=== PATIENT | male | born 1975 | race Caucasian/White ===

== ENCOUNTER 2020-06-02 12:04 | Inpatient (IN) | payer OTHER ==
[~2020-06-02] VITALS: Ht 180.3 cm; Wt 204.1 kg
[~2020-06-02 12:04] MED LIST: ADIPEX-P37.5 MG PO; HYDROCHLOROTH12.5 M1 PO; LISINOPRIL20 MG PO
[2020-06-02 12:23] VITALS: BP 143/126
[2020-06-02] MEDS ORDERED: XANAX 0.5 MG0.5 MG PO (12:27)
[2020-06-02 12:53] LABS: ABSOLUTE LYMPHOCYTES 1.1 thou/uL (0.8-5.3); ABSOLUTE MONOCYTES 0.3 thou/uL (0.0-1.2); ABSOLUTE NEUTROPHILS 4.7 thou/uL (1.6-8.1); BASOPHILS 0.3 %; HEMATOCRIT 46.6 % (42.0-52.0); HEMOGLOBIN 15.7 gm/dL (14.0-18.0); LYMPHOCYTES 17.5 %; MCH 29.2 pg (26.0-34.0); MCHC 33.7 g/dL (28.0-37.0); MCV 86.5 fL (80.0-100.0); MONOCYTES 5.6 %; MPV 8.6 fl. (7.2-11.1); NUCLEATED RBCS 0 /100WBC; PLATELET COUNT* 145 thou/uL (150-400); POLYS 76.6 %; RBC 5.39 mil/uL (4.50-6.00); RDW-CV 13.4 % (10.5-14.5); WBC 6.2 thou/uL (4.0-11.0)
[2020-06-02 12:57] LABS: URINE BLOOD 1+ (Negative); URINE CLARITY CLEAR; URINE COLOR YELLOW; URINE GLUCOSE-RANDOM NEGATIVE (Negative); URINE KETONES TRACE (Negative); URINE LEUKOCYTES-REFLEX NEGATIVE (Negative); URINE NITRITE-REFLEX NEGATIVE (Negative); URINE PROTEIN 3+ (Negative); URINE SPECIFIC GRAVITY 1.025 (1.005-1.030)
[2020-06-02 13:01] LABS: CALCIUM 8.2 mg/dL (8.5-10.1); CREATININE 1.9 mg/dL (0.6-1.3); POTASSIUM 4.1 mmol/L (3.5-5.1)
[2020-06-02 13:02] LABS: ICTOTEST (BILI CONFIRMATORY) Negative (Negative); URINE BILIRUBIN 1+ (Negative)
[2020-06-02 13:05] LABS: APTT 30.9 Seconds (25.0-31.3); INR 1.1; PROTIME 11.3 Seconds (9.20-11.50)
[2020-06-02 13:07] LABS: AMP/METHAMP Negative (Negative); BARBITURATES Negative (Negative); BENZODIAZEPINES POSITIVE (Negative); COCAINE Negative (Negative); METHADONE Negative (Negative); OPIATES Negative (Negative); PCP Negative (Negative); THC Negative (Negative)
[2020-06-02 13:11] LABS: SQUAMOUS NONE SEEN /LPF (0-3); URINE WBC-REFLEX 0-5 Rare /HPF (0-5)
[2020-06-02 13:12] LABS: ALBUMIN 2.7 g/dL (3.4-5.0); TOTAL BILIRUBIN 0.4 mg/dL (<0.1-1.0); TOTAL PROTEIN 7.5 g/dL (6.4-8.2)
[2020-06-02 13:12] LABS: BACTERIA-REFLEX >30 Many /HPF (None Seen); COARSE GRANULAR CASTS 4-10 Moderate /LPF (None Seen); FINE GRANULAR CASTS 0-3 Few /LPF (None Seen); HYALINE CASTS 0-3 Few /LPF (None Seen); MUCUS >6 Heavy strn/LPF (None Seen); URINE RBC 0-2 Rare /HPF (0-2)
[2020-06-02 13:13] LABS: CRYSTALS None Seen /LPF (None Seen); WBC CASTS 0-3 /LPF
[2020-06-02 15:14] LABS: BE -0.3 mmol/L (-2 to +3); PCO2 47.7 mmHg (35.0-45.0); PO2 91.5 mmHg (75.0-100.0); pH 7.353 (7.340-7.450)
[2020-06-02 16:43] VITALS: BP 111/92
[2020-06-02 17:27] VITALS: BP 102/51
[2020-06-02 19:16] LABS: CALCIUM 8.3 mg/dL (8.5-10.1); CREATININE 1.5 mg/dL (0.6-1.3); POTASSIUM 4.7 mmol/L (3.5-5.1)
[2020-06-02 19:33] LABS: INFLUENZA A ANTIGEN Negative (Negative); INFLUENZA B ANTIGEN Negative (Negative)
[2020-06-03 01:15] VITALS: BP 104/47
[2020-06-03 04:32] LABS: HEMATOCRIT 45.5 % (42.0-52.0); HEMOGLOBIN 15.2 gm/dL (14.0-18.0); MCH 29.1 pg (26.0-34.0); MCHC 33.4 g/dL (28.0-37.0); MCV 87.1 fL (80.0-100.0); MPV 8.6 fl. (7.2-11.1); RBC 5.22 mil/uL (4.50-6.00); RDW-CV 13.7 % (10.5-14.5); WBC 5.6 thou/uL (4.0-11.0)
[2020-06-03 04:38] LABS: CALCIUM 8.5 mg/dL (8.5-10.1); CREATININE 1.6 mg/dL (0.6-1.3); MAGNESIUM 2.1 mg/dL (1.8-2.4); POTASSIUM 4.3 mmol/L (3.5-5.1)
--- NOTE | 2020-06-03 12:00 | NUR ---
SPOKE WITH PT.ON PHONE DUE TO COVID PENDING AND ON ENHANCED PRECAUTIONS. HE SAID HE IS INDEPENDENT. HIS SON LIVES WITH HIM. WORKS. NO USE OF DME. NO HX OF OR SNF. DOES NOT HAVE INSURANCE. MED ASSIST TO SCREEN. DISCUSSED MED ASSIST WITH HIM.
--- NOTE | 2020-06-03 14:29 | NUR ---
Nutrition: Pt admitted to COVID unit with COVID. Consult received for OBE. Wt: 450#. DDiet: regular. Alb 2.7, prealb 8.9 - severely low. Not a lot of info yet. No meal intake recorded. Will follow pt's po intake, wt, labs. Consider mild nutrition risk at this time. F/u 06/08/20.
--- NOTE | 2020-06-03 15:07 | EKG ---
[place] [address] ELECTROCARDIOGRAM REPORT Name: DAVID HALEY Room: [address] ADM IN .R.#: [id number] Admission: 06/02/20 Attend Phys: Julius Baltazar, Discharge: Date of : 71 Date of Service: 06/02/20 1224 Report #: [id number] THIS REPORT FOR: //name// [facility] ED Test Date: 2020-06-02 Test Time: 12:24:57 Pat Name: DAVID MARICRUZELOY Department: Room: [facility] Gender: M Jailor: PIYUSH : 1975 Requested By: Alverto Thornton Order Number: [id number] MD: Shahram Barajas Measurements Intervals Morning Sun Rate: 109 P: 33 RI: 158 QRS: -5 QRSD: 103 T: 49 QT: 335 QTc: 452 Interpretive Statements Sinus tachycardia Baseline wander in lead(s) I,II,III,aVL,aVF Compared to ECG 03/03/2016 18:40:20 Sinus rhythm no longer present Intraventricular conduction delay no longer present Electronically Signed On 06-03-2020 15:07:12 EMERGENCY MANAGEMENT PROGRAM SPECIALIST by Shahram Barajas [email or web address] <ELECTRONICALLY SIGNED> By: Shahram Barajas MD, FAC 06/03/20 1507 1224 1224 Shahram Barajas MD, [facility] /EPI
[2020-06-03 16:00] VITALS: BP 110/79
--- NOTE | 2020-06-03 19:16 | NUR ---
PT A&OX4 VSS. PT ON 3L O2 BY NC. PT REFUSED TO GET UP TO RECLINER THIS AM OR LUNCH. PT UP AD BOUCHRA, CONTINENT OF B/B. PCR RESULTS PENDING. IV TO RFA PATENT, DRESSING C/D/I. FAMILY UPDATED BY PHONE THIS AFTERNOON. IV ABX ADMINISTERED DIRECTED. PT RESTS IN BED WITH CALL LIGHT IN REACH.
[2020-06-03 21:00] VITALS: BP 141/77
--- NOTE | 2020-06-04 07:56 | NUR ---
PATIENT LEFT AMA AT APPROXIMATELY 0545. PATIENT WAS EDUCATED ON THE RISKS REGARDING HIS HEALTH IF LEAVING THE HOSPITAL. PATIENT STATED THAT "I CAN'T SLEEP WITH THE NOISY MACHINE IN MY ROOM". NURSE INFORMED PATIENT THAT HE MUST BE IN NEGATIVE PRESSURE ROOM D/T POSSIBILITY OF BEING POSITIVE FOR COVID-19 AND HIM RECEIVING BREATHING TREATMENTS. PATIENT ALSO STATED THAT HE TAKES 2 ANXIETY PILLS AT NIGHT TO SLEEP AND HE IS ONLY GETTING ONE HERE. NURSE EXPLAINED THAT THE DRCale HAS ANXIETY MEDICATION ORDERED TWICE PER DAY ONCE IN THE AM AND ONCE AT NIGHT. NURSE ALSO EXPLAINED THAT SHE COULD MESSAGE THE DRCale OR HE COULD SPEAK WITH THE DRCale IN THE AM REGARDING HIS ANXIETY MEDICATION. PATIENT STILL STATING THAT HE WAS GOING HOME AND IF THE DRCale'S FOUND OUT HE WAS POSITIVE THAT THEY COULD CALL HIM AT HOME. PATIENT SIGNED AMA PAPERWORK AND WAS ESCORTED OUT WITH BELONGINGS AND HAD SOMEONE WAITING TO PICK HIM UP. DR. GAUTAM NOTIFIED OF PATIENT LEAVING AMA. LAB CALLED THIS AM AFTER PATIENT LEFT AND INFORMED NURSE THAT COVID PCR CAME BACK SHOWING PATIENT WAS COVID-19 POSITIVE. CHARGE NURSE SENT MESSAGE OUT TO DR. YA THE [facility] [employer] [facility] REGARDING POSITIVE COVID PCR.
--- NOTE | 2020-06-04 11:34 | NUR ---
NOTIFIED ELIZABETH MCKEON, INFECTIOUS DISEASE NURSE, THAT PT. LEFT AMA AND WAS NOT AWARE HE WAS COVID POSITIVE. SHE SAID SHE WOULD CALL HIM TO NOTIFY.
--- NOTE | 2020-06-04 11:49 | NUR ---
Infection Prevention Note: Attempted to contact patient via phone #[phone] to inform of positive Covid 19 PCR test. Message was left to call back to receive lab results.
--- NOTE | 2020-06-04 15:05 | NUR ---
Infection Prevention Note: Patient notified of Positive Covid 19 PCR test from 06/02. Instructed to remain isolated for 10 days from onset of symptoms and 24 hours if symptoms improve and no fever. Patient indicated understanding. Patient instructed to return to ED if symptoms worsen. Patient reported that he left before his IV catheter could be removed. He was instructed to return to the ED for removal.
== END 2020-06-04 05:45 | disposition left against medical advice (07) | DRG 871 ==
LOC: M.ERS 12:04 → M.TBA-ER 14:00 → M.ORTHSURG 16:55
PROVIDERS: Family Medicine; Physician Assistant; ADMIT Internal Medicine; ATTEND Internal Medicine
PROC: 5A0935A Assistance with Respiratory Ventilation, Less than 24 Consecutive Hours, High Flow/Velocity Cannula (ICD-10-PCS; principal; 2020-06-03)
DX: A41.89 Other specified sepsis (principal); J96.01 Acute respiratory failure with hypoxia; N17.0 Acute kidney failure with tubular necrosis; U07.1 COVID-19; J12.82 Pneumonia due to coronavirus disease 2019; E87.1 Hypo-osmolality and hyponatremia; Z68.44 Body mass index [BMI] 60.0-69.9, adult; I10 Essential (primary) hypertension; Z20.822 Contact with and (suspected) exposure to COVID-19; Z79.899 Other long term (current) drug therapy; E66.01 Morbid (severe) obesity due to excess calories; R73.9 Hyperglycemia, unspecified; F41.1 Generalized anxiety disorder; J02.8 Acute pharyngitis due to other specified organisms; Z53.29 Procedure and treatment not carried out because of patient's decision for other reasons